=== PATIENT | female | born 1960 | race Caucasian/White ===

== ENCOUNTER → 2020-06-27 | Outpatient (REF) | payer BC ==
[~2020-06-27] MED LIST: ASPI81TA86 PO; ATEN25TA PO; ECOT81TA5 PO; HYDR500C3 PO; METR0.7533 TOP; VITA50005 PO
== END ==
LOC: M LABCFH 14:45
DX: Z12.4 Encounter for screening for malignant neoplasm of cervix (principal)
CPT/HCPCS: 87624; G0123